=== PATIENT | male | born 1955 | race Caucasian/White ===

== ENCOUNTER 2018-01-26 15:15 | Observation (INO) | payer OTHER ==
[2018-01-26] MEDS ORDERED: NS 500 ML IV ONE (15:26)
--- NOTE | 2018-01-26 15:29 | CPEKG ---
Heart Rate: 132 RR Interval: 455 QRSD Interval: 100 QT Interval: 364 QTC Interval: 540 QRS Swink: -25 T Wave Swink: 201 EKG Severity - ABNORMAL ECG - EKG Impression: A-FLUTTER W/ VARIED AV BLOCK, A-RATE 277 EKG Impression: INCOMPLETE RBBB AND LAFB EKG Impression: ABNORMAL T, CONSIDER ISCHEMIA, DIFFUSE LEADS EKG Impression: PROLONGED QT INTERVAL Electronically Signed By: Za Montenegro 26-Jan-2018 20:52:00
[2018-01-26 15:39] LABS: PLATELET COUNT 367 10^3/uL (150-400)
[2018-01-26 15:45] LABS: CREATINE KINASE 182 IU/L (0-224)
[2018-01-26 15:48] LABS: INR 0.98 (0.83-1.16); PROTIME(PATIENT) 13.2 SEC (12.0-15.0)
--- NOTE | 2018-01-26 15:50 | EDPHY ---
H & P Time Seen by Provider: 01/26/18 15:26 HPI/ROS: HPI Weakness and pain in left foot. 62-year-old male by ambulance from the [facility]. This patient was initially seen at [facility], [place] with complaint of a left ft drop which has been present for the last 3 weeks but intermittent in nature. He reports that it has been more constant over the last 3-4 days. He denies any back pain. No headache. No neck pain. No history of trauma. He reports he had no issues involving his left lower extremity prior to 3 weeks ago. He also describes having swelling in the left lower extremity for the last 3 weeks. He describes having paresthesia over the dorsal aspect of the left foot and some associated intermittent pain. When evaluated at the [facility] [place] he was noted to be tachycardic and likely in atrial flutter this was the reason why he was sent to our emergency department. He denies any palpitations. No other complaints. ROS: Constitutional: No fever, no chills. No weakness. Eyes: No discharge. No changes in vision. ENT: No sore throat. No nasal congestion or rhinorrhea. Respiratory: No cough. No shortness of breath. Cardiac: No chest pain, no palpitations. Gastrointestinal: No abdominal pain, no vomiting, no diarrhea. Genitourinary: No hematuria. No dysuria or increased frequency with urination. Musculoskeletal: No back pain. No neck pain. As above. Skin: No rashes. Neurological: No headache. As above. Past medical history: The patient denies any significant past medical history. He is not on any prescription medications at this time. Social history: Drinks coffee. Denies alcohol. No IV drugs or street drugs. Lives in [place]. Nonsmoker. Physical Exam: General Appearance: Alert, no distress. This patient is responding to questions appropriately and in full sentences. This patient appears well- hydrated and well-nourished. Eyes: Pupils equal and round no pallor or injection. No lid edema, erythema or injection. Respiratory: There are no retractions, lungs are clear to auscultation with good air movement bilaterally. Cardiovascular: Regular tachycardia. No murmur appreciated. Gastrointestinal: Abdomen is soft and nontender, no masses, bowel sounds normal. No focal tenderness at McBurney's point. No Gan sign. Neurological: Motor sensory function is grossly intact except for a left lower extremity L5 dermatomal sensory deficit and motor deficit with no bo flexion strength and a drop foot. Cranial nerves are normal. Antalgic gait. Skin: Warm and dry, no rashes. Musculoskeletal: Neck is supple and nontender. No midline cervical, thoracic, lumbar, sacral tenderness on palpation. No bony step-off heart deformity noted on palpation of his spine. No SI joint tenderness on palpation. No significant scoliosis. Left lower extremity significant for diffuse edema an asymmetric swelling relative to the right. The left knee joint also appears to be swollen, however this is without of fusion, he states that his left knee has been this way since an injury in high school. The left knee joint is stable to valgus and varus stress testing. It is stable to anterior and posterior drawer testing. The left lower extremity is vascularly intact with normal capillary refill and sensation in all digits. He has palpable dorsalis pedis and posterior tibial pulses. Muscle compartments of the left leg are soft. Psychiatric: No agitation. No depression. Database: EKG: EKG time is 3:27 p.m.: EKG shows if again for a narrow complex atrial flutter with variable AV block and ventricular rate average of 150-130. There is an incomplete right bundle branch block and left anterior fascicular block is noted. Diffuse T-wave abnormalities noted. Corrected QT interval is 540. Interpreted by me. Imaging: Left knee x-ray series: Severe degenerative she joint disease noted. Osteophytic add cystic changes. No acute fracture, subluxation, dislocation. Interpreted by me. Please see radiologist's interpretation for further details. Chest x-ray AP portable; the cardiac mediastinal silhouette is unremarkable. No evidence of infiltrate or pneumothorax. Probable left basilar atelectasis. No other acute cardiopulmonary disease process noted. Interpreted by me. Left lower extremity ultrasound: Negative for DVT. Results were discussed with staff radiologist. Lumbar spine MRI without contrast: Significant for a moderate to severe L5-S1 posterior left lateral disc bulge. Degenerative changes noted. Results discussed with staff radiologist Dr. Jey Gregg. Please see his report for further details. Procedures: Emergency department course: IV placed. Patient placed on a cardiac cath rn. Vital signs reviewed. laboratory monitor shows a narrow complex regular tachycardia with ventricular rate of 130. Patient started on IV normal saline with 500 cc to be given over the next 30 min to 1 hr. He will be started on a diltiazem loading drip at 2.5 milligrams/minute up to 50 mg total for rate control of atrial flutter. Patient's medical records reviewed. He was seen in the emergency department January 09 of this year with complaint of palpitations. He describes these is intermittent. He had a EKG which showed a normal sinus rhythm at that time. He was discharged to home from the emergency department after an unremarkable workup. 5:30 p.m., patient received a total of 20 mg of IV diltiazem is a loading drip. His ventricular rate was controlled into the upper 80s to low 90s. He was started on a steady state drip at 10 mg an hour. Hospitalist paged. 6:10 p.m., case discussed with on-call hospitalist Dr. Evans. He accepts this patient for admission. Neurosurgery page. 6:20 p.m., spoke with on-call neuro spine surgeon Dr. Tabares. He will consult on this patient. He will likely see the patient in the emergency department prior to transfer to the floor. 6:30 p.m., patient re-evaluated. Resting comfortably at this time. Results of MRI, emergency department workup plan for admission discussed with him. Vital signs reviewed. laboratory monitor shows a narrow complex atrial flutter with ventricular rate of 79. Diltiazem drip currently at 10 milligrams/hour. Blood pressure 114/75. Patient's remaining emergency department course under my care uneventful. Patient was admitted to telemetry under the care of Dr. Evans in stable condition. Differential Diagnosis: The differential diagnosis on this patient includes but is not limited to atrial flutter with variable block and rapid ventricular response, left lower extremity DVT, L5 radiculopathy, compartment syndrome, peroneal nerve impingement. This represents a partial list of diagnoses considered. These considerations are based on history, physical exam, past history, reassessment and diagnostic testing. Smoking Status: Current every day smoker Constitutional: Initial Vital Signs Temperature (C) 36.9 C 01/26/18 15:15 Heart Rate 132 H 01/26/18 15:15 Respiratory Rate 17 01/26/18 15:15 Blood Pressure 140/97 H 01/26/18 15:15 O2 Sat (%) 95 01/26/18 15:15 O2 Delivery Mode Room Air Allergies/Adverse Reactions: No Known Allergies Allergy (Unverified 01/26/18 15:26) Home Medications: Medication Instructions Recorded Aspirin 01/26/18 Ibuprofen 01/26/18 Medical Decision Making - Diagnostics Imaging Results: Imaging Impressions Chest X-Ray 01/26/18 15:27 Impression: 1. Mild prominent interstitial markings left mid to lower lung. The patient is apparently not symptomatic for interstitial pneumonia. Consider mild scarring or atelectasis. Extremity Venous Study 01/26/18 15:27 Impression: No evidence of deep vein thrombosis in the left leg. Knee X-Ray 01/26/18 15:37 Impression: 1. Severe degenerative change in the lateral compartment. 2. Possible loose body. 3. Cystic change in the proximal fibula most likely related to subchondral cyst formation. 4. Additional findings, as above. Dr. Javier Prakash reviewed the study and agrees with the findings. Lumbar Spine MRI 01/26/18 15:37 Impression: 1. Moderate levoscoliosis mid to lower lumbar spine with associated disk space narrowing and hypertrophic osteophytes as detailed above.. 2. Mild to moderate left posterior lateral disk bulge at L5-S1 along with facet hypertrophy contributes to moderate to severe left-sided neuroforaminal stenosis that may account for the patient's symptoms. 3. Multilevel degenerative disk disease from T9-T10 through L4-L5 as detailed above with associated mild spinal stenosis as well as neuroforaminal stenoses more prominent on the left side at L1-L2 and L2-L3 and right side at L3-L4 and at L4-L5 as detailed above. Findings discussed with Za Montenegro MD at 17:21 hour, 01/26/2018. - Data Points Laboratory Results: Laboratory Results 01/26/18 15:15 01/26/18 15:15 01/26/18 01/26/18 01/26/18 15:15 15:15 15:15 WBC RBC Hgb Hct MCV MCH MCHC RDW Plt Count MPV Neut % (Auto) Lymph % (Auto) Dickenson % (Auto) Eos % (Auto) Baso % (Auto) Nucleat RBC Rel Count Absolute Neuts (auto) Absolute Lymphs (auto) Absolute Monos (auto) Absolute Eos (auto) Absolute Basos (auto) Absolute Nucleated RBC Immature Gran % Immature Gran # PT 13.2 SEC SEC (12.0-15.0) INR 0.98 (0.83-1.16) APTT 26.9 SEC SEC (23.0-38.0) D-Dimer 0.39 ug/mLFEU ug/mLFEU (0.00-0.50) Sodium 135 mEq/L mEq/L (135-145) Potassium 4.5 mEq/L mEq/L (3.5-5.2) Chloride 103 mEq/L mEq/L (97-110) Carbon Dioxide 23 mEq/l mEq/l (22-31) Anion Gap 9 mEq/L mEq/L (8-16) BUN 18 mg/dL mg/dL (7-23) Creatinine 0.8 mg/dL mg/dL (0.7-1.3) Estimated GFR > 60 Glucose 92 mg/dL mg/dL (70-100) Calcium 9.8 mg/dL mg/dL (8.5-10.4) Creatine Kinase 182 IU/L IU/L (0-224) CK-MB (CK-2) Fraction 5.51 ng/mL H ng/mL (0.00-3.19) CK-MB (CK-2) % 3.0 % % (0.0-4.0) Creatine Kinase Interp NEGATIVE (NEGATIVE) Troponin I < 0.012 ng/mL ng/mL (0.000-0.034) TSH 0.488 uIU/mL uIU/mL (0.465-4.680) 01/26/18 15:15 WBC 8.95 10^3/uL 10^3/uL (3.80-9.50) RBC 4.74 10^6/uL 10^6/uL (4.40-6.38) Hgb 15.4 g/dL g/dL (13.7-17.5) Hct 45.0 % % (40.0-51.0) MCV 94.9 fL fL (81.5-99.8) MCH 32.5 pg pg (27.9-34.1) MCHC 34.2 g/dL g/dL (32.4-36.7) RDW 12.7 % % (11.5-15.2) Plt Count 367 10^3/uL 10^3/uL (150-400) MPV 8.3 fL L fL (8.7-11.7) Neut % (Auto) 71.1 % % (39.3-74.2) Lymph % (Auto) 20.8 % % (15.0-45.0) Dickenson % (Auto) 6.8 % % (4.5-13.0) Eos % (Auto) 0.2 % L % (0.6-7.6) Baso % (Auto) 0.2 % L % (0.3-1.7) Nucleat RBC Rel Count 0.0 % % (0.0-0.2) Absolute Neuts (auto) 6.36 10^3/uL 10^3/uL (1.70-6.50) Absolute Lymphs (auto) 1.86 10^3/uL 10^3/uL (1.00-3.00) Absolute Monos (auto) 0.61 10^3/uL 10^3/uL (0.30-0.80) Absolute Eos (auto) 0.02 10^3/uL L 10^3/uL (0.03-0.40) Absolute Basos (auto) 0.02 10^3/uL 10^3/uL (0.02-0.10) Absolute Nucleated RBC 0.00 10^3/uL 10^3/uL (0-0.01) Immature Gran % 0.9 % % (0.0-1.1) Immature Gran # 0.08 10^3/uL 10^3/uL (0.00-0.10) PT INR APTT D-Dimer Sodium Potassium Chloride Carbon Dioxide Anion Gap BUN Creatinine Estimated GFR Glucose Calcium Creatine Kinase CK-MB (CK-2) Fraction CK-MB (CK-2) % Creatine Kinase Interp Troponin I TSH Medications Given: Discontinued Medications Diltiazem HCl (Cardizem 25 Mg/5 Ml Vial) 50 mg IVP EDNOW ONE Stop: 01/26/18 16:50 Last Admin: 01/26/18 17:09 Dose: 20 mg Sodium Chloride (Ns) 500 mls @ 1,000 mls/hr IV EDNOW ONE PRN Reason: Protocol Stop: 01/26/18 15:55 Last Admin: 01/26/18 15:59 Dose: 500 mls Diltiazem/Dextrose (Diltiazem 125mg/125ml (Premix)) 125 mls @ 0 mls/hr IV EDNOW ONE; Titrate PRN Reason: Protocol Stop: 01/26/18 17:01 Last Admin: 01/26/18 17:35 Dose: 125 mls Departure - Departure Disposition: [facility] Inpatient Acute Clinical Impression: Atrial flutter with rapid ventricular response, L5 neuropathy Referrals: Patient,NotPresent [Unknown] - As per Instructions
[2018-01-26] MEDS ORDERED: DILTIAZEM 125 MG in D5W 125 ML IV ONE (16:11)
[2018-01-26] MEDS ORDERED: DILTIAZEM 50 MG/10 ML VIAL IV ONE (16:48)
[2018-01-26] MEDS ORDERED: DILTIAZEM 25 MG/5 ML VIAL IVP ONE (16:49)
[2018-01-26] MEDS ORDERED: DILTIAZEM HCL/D5W 125 ML IV ONE (17:00)
[2018-01-26] MEDS ORDERED: ONDANSETRON DISINTEGRATING 4 MG TAB PO PRN (18:39)
[2018-01-26] MEDS ORDERED: ONDANSETRON 4 MG/2 ML VIAL IVP PRN (18:39)
[2018-01-26] MEDS ORDERED: ZOLPIDEM TARTRATE 5 MG TAB PO PRN (18:39)
[2018-01-26] MEDS ORDERED: ACETAMINOPHEN 325 MG TAB PO PRN (18:39)
[2018-01-26] MEDS ORDERED: DILTIAZEM 125 MG in D5W 125 ML IV SCH (18:45)
--- NOTE | 2018-01-26 19:21 | PDGENHP ---
History and Physical History and Physical: CC: Sent from [place] ER because of rapid atrial flutter HISTORY: This patient with no history of heart disease had gone to the [place] ER today because of a left foot drop but is sent here for evaluation and treatment of newly diagnosed atrial flutter. The patient was found to have a heart rate of 135 regular but with a flutter on EKG at the ER. He had stable vital signs otherwise in no signs of heart failure. He has no sense of palpitations nor has he ever had any palpitations or any symptoms of heart failure, PE or other cardiac issues. Therefore there is no known onset of his atrial flutter. Again he denies dyspnea, leg swelling, orthopnea, exertional fatigue. She has no history of anything that sounds like angina. He has no use of alcohol, no use of stimulants, no thyroid disease or thyroid symptoms, and no family history of arrhythmia. He has never had an echocardiogram The reason the patient showed up at the ER in [place] today was because of a left foot drop associated with some dorsal left foot pain that has been present for approximately 3 weeks and gradually worsening. The pain is described as a burning sensation along with some numbness. He cannot dorsiflex his ankle or toes at all and has stumbled a bit trying to walk recently but has not fallen. There is no recent injury to the leg but he has a history of an knee injury as a high school student playing football and lately has noticed some change in shape and diameter of his knee per with a particular bony bulge medially. Occasionally the knee makes some noises as he walks. Because of this he started wearing a knee brace to try and stabilize it and this was a little over 3 weeks ago that he started wearing the knee brace. 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 He is a cigarette smoker currently No alcohol or street drugs MEDICATIONS: No prescription medicines, some nonsteroidal anti-inflammatories Has been wearing Lidoderm patches on his left foot and leg which are helping with his pain PHYSICAL EXAMINATION: Vital Signs: Started off here with pulse 135 and regular pulse is now in the upper 70s and regular, blood pressure respiration temperature is all normal Psychiatric Secretary: Initially 2-1 atrial flutter now 41 atrial flutter on a diltiazem drip Examination: General: alert, oriented, good mentation, relaxed Skin: warm, dry, good color, no rash HEENT: normal Neck: no mass or jvd Resps: relaxed Lungs: clear breath sounds Heart: regular, no murmur Abdomen: soft, nondistended, nontender, +BS, no mass Upper Extremities: normal Lower Extremities: There is a significant bony deformity to his left knee. He has good strength in the hip and knee flexors and extensors and good strength in the plantar flexion of his ankle in all of his toes but no dorsiflexion of his ankle or toes and he is insensate to touch on the dorsum of the foot and toes with diminished but better sensation on the lateral ankle No Bleeding or bruising Neurologic: normal speech/language, normal personal property assessor, no focal weakness IV site: looks normal LABORATORY DATA: Unremarkable CBC Unremarkable coagulation studies Unremarkable metabolic panel, troponin, and TSH is normal RADIOLOGY STUDIES: I reviewed images from a chest x-ray done in the ER which show some mild elevation of left hemidiaphragm but otherwise were unremarkable on my review I reviewed images from his left knee x-rays done in the ER which on my reading show severe degenerative changes with lateral compartment joint space narrowing and subchondral cystic changes which were quite remarkable in the proximal fibular head I reviewed his MRI of the lumbar spine with Dr. Montenegro which shows significant degenerative bony changes as well as L5-S1 disc protrusion leaving some foraminal stenosis. I have reviewed this verbally with Dr. 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 Is unknown how long he has been in atrial flutter or how likely he is to spontaneously convert. Clearly he needs anticoagulation. We could consider possibly a cardioversion and will review his case for possible SUE cardioversion tomorrow with Cardiology. That being said if he can be adequately rate controlled it may make good sense to treat him with anticoagulation and follow along and just do cardioversion if he either has trouble or does not spontaneously convert over time. At this point there is no obvious trigger for his atrial flutter at the moment. In terms of his left foot drop, I believe this is most likely a peroneal nerve palsy and Dr. Mayank Hull agrees. I believe this may have been caused by his knee brace and have suggested he stop wearing that. At this point particularly as he will be on anticoagulation it will be important to protect him from falls and so I will recommend an AFO brace and a cane along with therapies. I reviewed all this with him in detail. An outpatient nerve conduction study would be diagnostic to see if this is indeed peroneal nerve palsy PLANS: -placed on observation status on pvc monitor -continue rate controlled for the moment with diltiazem drip -will start Eliquis at this time -he will need Eliquis education -check echocardiogram to look for any structural heart abnormalities or functional heart abnormalities -check with Cardiology to see if they feel a SUE and cardioversion would be indicated if he does not spontaneously convert -physical occupational therapy assessment -AFO brace -use of a cane is recommended -tobacco cessation is strongly recommended as well I have reviewed the patient's case in detail with Dr. Za Montenegro and Adrian Tabares
[2018-01-26] MEDS ORDERED: APIXABAN 5 MG TAB PO ONE (19:45)
--- NOTE | 2018-01-26 20:35 | GCON ---
[f rep st] CONSULTATION ER CONSULTATION DATE OF CONSULTATION: 01/26/2018 REASON FOR CONSULTATION: Left painless footdrop with lumbar spondylosis and stenosis. HISTORY OF PRESENT ILLNESS: The patient is a 62-year-old gentleman who is otherwise fairly healthy w ho has had onset of weakness and radiculopathy, neuropathy in the left leg below the knee. The patie nt states this has been going on for approximately 3 weeks. He has had some swelling and buckling of his left knee for which he has been previously wearing a knee brace. No history of prior footdrop o r weakness in the past. He denies any back pain and no pain or symptoms above the left knee and no s ymptoms in the right lower extremity. The patient had such severe pain in the left foot that he came to the Urgent Care in [place]. When evaluated at [facility], he was noted to be tachyc ardic and likely in atrial flutter, for which he was sent to [facility]. At this point, the patient denies any palpitations or chest pain. No back pain. No lower extremity pain. He has been placing Lidoderm patches on the left foot where he had burning sensation, and that has all since improved. He continues to have left foot weakness which has been chronic in nature fo r approximately 3 weeks with no inciting trauma or event. REVIEW OF SYSTEMS: Complete 10-point review of systems from the patient intake form were reviewed by myself, significant only as noted above in the HPI. PAST MEDICAL HISTORY: None. PAST MEDICAL HISTORY: None. SOCIAL HISTORY: The patient drinks coffee. Denies any alcohol or other illicit drug use. He lives in [place] and works in [employer]. Denies tobacco use. ALLERGIES: No known drug allergies. FAMILY HISTORY: Negative for any neurological tumors. PHYSICAL EXAMINATION: VITAL SIGNS: Blood pressure is 114/69, heart rate is 79, respiratory rate is 18, he is saturating 95% on room air. Temperature is 36.9. GENERAL: The patient is lying on the gu rney, he is in no acute distress. He is quite pleasant and cooperative with examination. Questions are answered appropriately. HEENT: Head is atraumatic, normocephalic. Pupils are equal, round, and reactive to light bilaterally. NEUROLOGIC: Cranial nerves 2-12 are intact. His pupils are equal, round, and reactive to light bilaterally. Extraocular movements intact. Face is symmetric. Tongue protrudes in the midline. Uvula and palate elevate symmetrically. He has intact sensation to light touch to his face bilaterally. Hearing is intact to light finger scratch bilaterally, and shoulder s hrug is symmetric. MOTOR: He has 5/5 strength with bilateral airport traffic controller strength, biceps, triceps, deltoi ds, bilateral hip flexion, bilateral knee flexion and extension, right-sided plantar dorsiflexion, ex tensor hallucis longus. He has 5/5 left foot inversion with no left foot eversion nor dorsiflexion a nd no EHL with 5/5 left plantar flexion. SENSORY: He has intact sensation to all touch through all major dermatomes of the bilateral upper and lower extremities throughout. He states he previously owens d had diminished sensation to light touch over the left dorsum of his foot, and it questionably is di minished at this point after having been treated with the Lidoderm patch. OTHER: Patient has slight swelling of the left knee without effusion. Patient states he was wearing a knee brace on this prio r to my examination. He has no Babinski's and no Lockhart's. MEDICAL DECISION-MAKING: Patient underwent an MRI of the lumbar spine without contrast, which was re viewed by myself on the [facility] PAC system. There was evidence of moderate levosc oliosis in the mid to lower lumbar spine with associated disk space narrowing and hypertrophic osteop hytes. There is mild to moderate left posterolateral disk bulge at L5-S1 with facet hypertrophy and evidence of moderate left-sided neural foraminal stenosis. He has multilevel degenerative disk disea se in T9-T10 through L4-L5 with mild spinal stenosis and neural foraminal stenosis on the left L1-L2, L2-L3, right-sided L3-L4, L4-L5. ASSESSMENT AND PLAN: The patient is a 62-year-old gentleman who presents with atrial flutter, but pr esented initially to the emergency department/urgent care for left painless footdrop with a little bi t of neuropathic pain and diminished sensation. He has no evidence of dorsiflexion of the foot or ex tensor hallucis longus, and diminished sensation with no evidence of any eversion of the left foot. His MRI does demonstrate some neural foraminal stenosis on the left side at L5-S1, but this is not se alina in nature, and it is questionable as to whether this is contributing to his symptoms, given his lack of back pain or any symptoms above the left knee, or on the right lower extremity. This may be evidence of peroneal nerve injury. At this point, he is going to be admitted to the [facility] for his cardiac evaluation. Recommend starting the patient on some Neurontin for his neuropathic pain and consideration for a left ankle-foot orthosis for his footdrop and possibly physical therapy /occupational therapy for left foot strengthening and gait training. Would consider an outpatient EM G to further evaluate the symptomatology. I do not think an injection would be worthwhile, given the fact that he has improved symptoms at this point from a pain standpoint. Further recommendations wi ll be completed as an outpatient. Please note, I discussed this with the patient, who is in agreement, as well as Dr. Evans who is the admitting physician, and the emergency room physician, Dr. Hernandez. Thank you for this consultation. Please note, this patient was seen in the emergency department at approximately 6:45 p.m. on January 26, 2018. /[id number]/MODL
[2018-01-26] MEDS ORDERED: APIXABAN 5 MG TAB PO SCH (21:00)
[2018-01-26] MEDS ORDERED: DILTIAZEM HCL/D5W 125 ML IV SCH (21:00)
[2018-01-27 04:14] LABS: PLATELET COUNT 373 10^3/uL (150-400)
[2018-01-27] MEDS: NICOTINE 14 MG/24 HR PATCH TD SCH ×2 (04:57→07:56)
--- NOTE | 2018-01-27 07:51 | SOAPPROG ---
KAILEE Progress Note Assessment/Plan: Assessment: 62 yo M with painless left dorsiflexor weakness with moderate DJD on lumbar spine Plan: neuro: stable discussed with patient that weakness may be coming from moderate DJD L4/5 with far lateral stenosis left L5/S1 but he has no significant back pain or radicular leg pain. started medrol dose pack started neurontin PT/OT patient would benefit from AFO brace will have patient get outpatient EMG to evaluate for acute radiculopathy follow up with Dr Tabares in 3-6 weeks please call with neuro changes discussed with Dr Tabares 01/27/18 07:47 Subjective: no back pain, no leg pain, continued left DF weakness. Objective: Vital Signs Temp Pulse Resp BP Pulse Ox 36.7 C 66 18 93/65 L 95 01/27/18 07:39 01/27/18 07:39 01/27/18 07:39 01/27/18 07:39 01/27/18 07:39 Laboratory Results 01/27/18 03:42 01/27/18 03:42 01/26/18 01/27/18 01/28/18 05:59 05:59 05:59 Intake Total 1240 Output Total 1100 450 Balance 140 -450 PT 13.2 SEC (12.0-15.0) 01/26/18 15:15 INR 0.98 (0.83-1.16) 01/26/18 15:15 AAOx4, +FC PERRL, EOMI, no facial droop 5/5 except left DF/EHL 0/5 + light touch ICD10 Worksheet Patient Problems: Problems Problem Status Onset Atrial flutter with rapid ventricular response Acute
[2018-01-27] MEDS ORDERED: APIXABAN 5 MG TAB PO SCH (09:00)
--- NOTE | 2018-01-27 09:05 | CPEKG ---
Heart Rate: 67 RR Interval: 896 QRSD Interval: 140 QT Interval: 436 QTC Interval: 461 QRS Polk: -63 T Wave [place]k: 153 EKG Severity - ABNORMAL ECG - EKG Impression: A-FLUTTER W/ PREDOM 4:1 AV BLOCK, A-RATE 263 EKG Impression: NONSPECIFIC IVCD WITH LAD Electronically Signed By: Rayray Hernandez 27-Jan-2018 11:07:45
[2018-01-27] MEDS ORDERED: ATROPINE SULFATE 1 MG/10 ML SYR IVP ONE (09:29)
[2018-01-27] MEDS ORDERED: NS 1,000 ML IV ONE (09:29)
--- NOTE | 2018-01-27 09:32 | PDPROPOC ---
Sedation Plan of Care Sedation Plan of Care: vital signs stable, mental status noted, patient educated of risks, benefits, alternatives, patient can tolerate sedation ASA Classification: ASA 3 Planned drugs: fentanyl, midazolam, other (etomidate protocol) Mallampati Score: Class 3 Mallampati Reference Image: Patient passed 3-3-2 rule?: Yes
--- NOTE | 2018-01-27 09:33 | PDHPUP ---
History & Physical Update H&P update statement: This history and physical update is based on an assessment of the patient which was completed after admission or registration (within 24 hours), but prior to the surgery/procedure. H&P update: H&P reviewed & patient examined (patient needs SUE guided cardioversion), no change in patient's condition since H&P completed
--- NOTE | 2018-01-27 09:43 | PDCARCONS ---
Cardiology Consult Reason for Consult: I was asked to see the patient because of newly diagnosed atrial flutter. Chief Complaint: The patient was seen at the [place] ED with foot drop that was ongoing for the past 3 weeks, while at the ED he was newly diagnosed with atrial flutter. The patient was sent here for further evaluation. He denies cardiac symptoms including chest pain, syncope, near syncope, shortness of breath, and lightheadedness. History of Present Illness: HPI: Kevan is an active 62-year-old male. He was sent here from the [place] ED with newly diagnosed atrial flutter. Kevan presented to the ED with ongoing foot drop for the past 3 weeks with associated burning. He has been applying Lidocaine patches to the left foot and taking NSAIDS which seems to improve his pain. He works at a [employer] and is constantly moving throughout the day. Kevan denies cardiac symptoms including chest pain, syncope, near syncope, shortness of breath, and lightheadedness at rest and with exertion. Past Medical History: Denies. Family history: Father of stroke at a young age. Social History: Works at a [employer]. History Information - Allergies/Home Medication List Allergies/Adverse Reactions: No Known Allergies Allergy (Unverified 01/26/18 15:26) Home Medications: Aspirin EC [Aspirin EC 81 mg (*)] 81 mg PO DAILY 01/26/18 [Last Taken 01/26/18] Ibuprofen [Motrin (*)] 400 - 600 mg PO Q6H PRN 01/26/18 [Last Taken 01/26/18] I have personally reviewed and updated: family history, medical history, social history, surgical history Past Medical History: - Past Medical History no pertinent PMH - Surgical History Reports: no pertinent surgical hx - Family History Positive for: stroke - Social History Smoking Status: Light smoker Age in Years: < 65 Sex: Male Congestive Heart Failure History: No Hypertension History: No Stroke/TIA/Thromboembolism History: No Vascular Disease History: No Physical Exam Physical Exam: Temp Pulse Resp BP Pulse Ox 36.7 C 66 18 93/65 L 95 01/27/18 07:39 01/27/18 07:39 01/27/18 07:39 01/27/18 07:39 01/27/18 07:39 Constitutional: no apparent distress Eyes: PERRL, anicteric sclera Ears, Nose, Mouth, Throat: moist mucous membranes Cardiovascular: regular rate and rhythym, no murmur, rub, or gallop, No JVD Respiratory: no respiratory distress, no rales or rhonchi, clear to auscultation Skin: warm, normal color, no rashes or abrasions Psychiatric: interacting appropriately, not anxious Lab and Imaging 01/27/18 03:42 01/27/18 03:42 WBC 6.15 10^3/uL (3.80-9.50) 01/27/18 03:42 RBC 4.42 10^6/uL (4.40-6.38) 01/27/18 03:42 Hgb 14.5 g/dL (13.7-17.5) 01/27/18 03:42 Hct 42.2 % (40.0-51.0) 01/27/18 03:42 MCV 95.5 fL (81.5-99.8) 01/27/18 03:42 MCH 32.8 pg (27.9-34.1) 01/27/18 03:42 MCHC 34.4 g/dL (32.4-36.7) 01/27/18 03:42 RDW 12.9 % (11.5-15.2) 01/27/18 03:42 Plt Count 373 10^3/uL (150-400) 01/27/18 03:42 MPV 8.2 fL (8.7-11.7) L 01/27/18 03:42 Neut % (Auto) 46.0 % (39.3-74.2) 01/27/18 03:42 Lymph % (Auto) 37.6 % (15.0-45.0) 01/27/18 03:42 Brazos % (Auto) 11.5 % (4.5-13.0) 01/27/18 03:42 Eos % (Auto) 3.1 % (0.6-7.6) 01/27/18 03:42 Baso % (Auto) 0.7 % (0.3-1.7) 01/27/18 03:42 Nucleat RBC Rel Count 0.0 % (0.0-0.2) 01/27/18 03:42 Absolute Neuts (auto) 2.83 10^3/uL (1.70-6.50) 01/27/18 03:42 Absolute Lymphs (auto) 2.31 10^3/uL (1.00-3.00) 01/27/18 03:42 Absolute Monos (auto) 0.71 10^3/uL (0.30-0.80) 01/27/18 03:42 Absolute Eos (auto) 0.19 10^3/uL (0.03-0.40) 01/27/18 03:42 Absolute Basos (auto) 0.04 10^3/uL (0.02-0.10) 01/27/18 03:42 Absolute Nucleated RBC 0.00 10^3/uL (0-0.01) 01/27/18 03:42 Immature Gran % 1.1 % (0.0-1.1) 01/27/18 03:42 Immature Gran # 0.07 10^3/uL (0.00-0.10) 01/27/18 03:42 PT 13.2 SEC (12.0-15.0) 01/26/18 15:15 INR 0.98 (0.83-1.16) 01/26/18 15:15 APTT 26.9 SEC (23.0-38.0) 01/26/18 15:15 D-Dimer 0.39 ug/mLFEU (0.00-0.50) 01/26/18 15:15 Sodium 141 mEq/L (135-145) 01/27/18 03:42 Potassium 4.6 mEq/L (3.5-5.2) 01/27/18 03:42 Chloride 109 mEq/L (97-110) 01/27/18 03:42 Carbon Dioxide 25 mEq/l (22-31) 01/27/18 03:42 Anion Gap 7 mEq/L (8-16) L 01/27/18 03:42 BUN 17 mg/dL (7-23) 01/27/18 03:42 Creatinine 0.8 mg/dL (0.7-1.3) 01/27/18 03:42 Estimated GFR > 60 01/27/18 03:42 Glucose 92 mg/dL (70-100) 01/27/18 03:42 Calcium 9.3 mg/dL (8.5-10.4) 01/27/18 03:42 Magnesium 1.8 mg/dL (1.6-2.3) 01/27/18 03:42 Creatine Kinase 182 IU/L (0-224) 01/26/18 15:15 CK-MB (CK-2) Fraction 5.51 ng/mL (0.00-3.19) H 01/26/18 15:15 CK-MB (CK-2) % 3.0 % (0.0-4.0) 01/26/18 15:15 Creatine Kinase Interp NEGATIVE (NEGATIVE) 01/26/18 15:15 Troponin I < 0.012 ng/mL (0.000-0.034) 01/26/18 15:15 TSH 0.488 uIU/mL (0.465-4.680) 01/26/18 15:15 Interpretation: The patient's EKG shows atrial flutter. A/P Assessment: IMP/Plan: I recommend the patient have SUE/CV due to newly diagnosed atrial flutter to help reduce the risk of thromboembolic stroke. If he has recurrence of atrial flutter post cardioversion he may benefit from an atrial flutter ablation as he appears to have counterclockwise flutter, which is often responsive to EP study and ablation. He has a CHADS VASC score currently of 0 so I think he may benefit from anticoagulation for only 30 days post conversion, after which daily ASA may be an acceptable treatment to help reduce the risk of thromboembolic events. He has been counseled on smoking cessation.
[2018-01-27] MEDS ORDERED: ETOMIDATE 40 MG/20 ML INJ ONE (12:16)
[2018-01-27] MEDS ORDERED: ATROPINE SULFATE 1 MG/10 ML SYR ONE (12:16)
[2018-01-27] MEDS ORDERED: fentaNYL 100 MCG/2 ML INJ ONE ×2 (12:17→13:20)
[2018-01-27] MEDS ORDERED: MIDAZOLAM 2 MG/2 ML VIAL ONE ×2 (12:17→13:19)
[2018-01-27 12:26] VITALS: BP 101/66; PULSE 74; RESP 17; TEMP 98.3
--- NOTE | 2018-01-27 13:52 | PDTEE1 ---
SUE Cardioversion Procedure Procedure: electrical cardioversion, transesophageal echo Indications: other (atrial flutter) Procedural Details: Pads were placed in anterior-posterior position. SUE probe was advanced and standard images obtained. There is no evidence of left atrial or left atrial appendage thrombus. Synchronized cardioversion attempt #1: 100J Results: normal sinus rhythm Conclusions: successful SUE cardioversion Conclusion Comment: There was no clot visualized on SUE. The patient is in normal sinus rhythm after CV. Patient should be on Eliquis 5mg BID for the next 30 days following CV. Patient Problems: Problems Problem Status Onset Atrial flutter with rapid ventricular response Acute
--- NOTE | 2018-01-27 13:53 | CPEKG ---
Heart Rate: 62 RR Interval: 968 P-R Interval: 180 QRSD Interval: 90 QT Interval: 424 QTC Interval: 431 P [place]: 13 QRS [place]: 6 T Wave [place]: 47 EKG Severity - BORDERLINE ECG - EKG Impression: SINUS RHYTHM EKG Impression: PROBABLE LEFT ATRIAL ABNORMALITY Electronically Signed By: Rayray Hernandez 28-Jan-2018 12:38:56
--- NOTE | 2018-01-27 14:41 | PDDCSUM ---
Discharge Summary Discharge Summary: 62 yo male sent from [place] ED with new onset a-flutter and left foot drop. cardioverted today, see details below. Now ready for d/c consults: NS, Cards ddx: # NEW DIAGNOSIS OF RAPID ATRIAL FLUTTER of uncertain duration with no previous history of heart disease or other causative factors -s/p cardioversion, now in SR -He will have Apixaban 5mg bid x one month. 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 unclear how much this is contributing to his sxs as he doesnt have much back pain and no radiculopathy. -Etiology is likely a peroneal nerve palsy due to malfitting left knee brace. -EMG as outpatient -f/u with Dr. Tabares in 306 weeks -medrol dose pack -gabapentin -trial of neurontin -afo BRACE -PT/OT # ONGOING TOBACCO ABUSE WITH CIGARETTES 1/2 PACK DAILY F/U: WITH PCP IN ONE WEEK, WITH CARDS 2-4 WEEKS, WITH NEUROSURGERY IN 3-6 WEEKS. Exam: (prior to cardioversion) NAD irr/irr CTA B S/NT/ND NO EDEMA SKIN WARM AAOX3 MEDS: SEE MED REC TOTAL TIME SPENT ON DISCHARGE IS 40 MINUTES
--- NOTE | 2018-01-27 14:42 | PDIAF ---
- Diagnosis Diagnosis: AFLUTTER, LEFT FOOT DROP Code Status: Full Code - Medication Management Discharge Medications: Medications to Continue on Transfer Apixaban [Eliquis] 5 mg PO BID #60 tab 01/27/18 [Last Taken Unknown] Gabapentin [Neurontin 300 MG (*)] 300 mg PO HS #30 cap 01/27/18 [Last Taken Unknown] Metoprolol Tartrate [Lopressor 25 mg (*)] 12.5 mg PO BID #30 tab 01/27/18 [Last Taken Unknown] methylPREDNISolone [Medrol Dose Raghu] 1 each PO AD #1 ea 01/27/18 [Last Taken Unknown] Discharge Medications: Refer to the Discharge Home Medication list for PRN reason. - Orders Services needed: Home Care, Physical Therapy Home Care Face to Face: I certify that this patient was under my care and that I had the required [id number] encounter meeting the encounter requirements on the discharge day. My findings support the fact that the patient is homebound as defined in Home Care Face to Face Continued: CMS Chapter 7 Medicare Benefits Manual 30.1.1 , The condition of the patient is such that there exists a normal inability to leave home and consequently, leaving home would require a considerable and taxing effort. Diet Recommendation: no restrictions on diet Diet Texture: Regular Texture Diet - Follow Up Care Current Providers and Referrals: Patient,NotPresent [Unknown] - As per Instructions
[2018-01-27 14:43] VITALS: O2SAT 95
--- NOTE | 2018-01-27 14:58 | ECHO ---
[email or web address] [address] [address] Main: [phone] Fax: Transthoracic Echocardiogram Name: EV MARS MR#: [id number] Study Date: 01/27/2018 Study Time: 08:28 AM Date of : 1955 Age: 62 year(s) Height: 167.6 cm (66 in.) Weight: 68.04 kg (150 lb.) BSA: 1.77 m2 Gender: Male Examination: Echo Indication: New atrial flutter Image Quality: Contrast: Requested by: Niko Evans BP: 93 mmHg/65 mmHg Heart Rate: Rhythm: Atrial flutter Indication: New atrial flutter Procedure Staff Wheel Aligner: Jessica Chawla RDCS Reading Physician: Rayray Newell MD Requesting Provider: Conclusions: Normal size left ventricle. No LV hypertrophy. Normal global systolic LV function. EF is 61 %. Normal size right ventricle. The right atrium is moderately to severely dilated. The mitral valve is normal in appearance and function. Mild calcification of the NCC of the aortic valve.. Mild tricuspid regurgitation is present. Borderline aortic root dilatation.. The aorta is normal. No pericardial effusion. Patient was in atrial flutter over course of this study. Measurements: Chambers Valvular Assessment AV/MV Valvular Assessment TV/PV Normal Normal Normal Name Value Range Name Value Range Name Value Range IVSd (2D): 0.9 cm (0.6 cm-1.1 AV meanP mmHg ( - ) TR Vmax: 1.91 mm/s ( - ) cm) MV E Vmax: 0.80 m/s ( - ) TR PGmax: 15 mmHg ( - ) LVDd (2D): 4.7 cm (4.2 cm-5.9 MV A Vmax: 0.83 m/s ( - ) syst. PAP: 20 mmHg ( - ) cm) MV E/A: 0.96 ( - ) LVDs (2D): 3.2 cm (2.1 cm-4 cm) LVPWd (2D): 1.0 cm (0.6 cm-1 cm) LVEF (MOD4): 61 % (>=55 %) Continued Measurements: Chambers Valvular Assessment AV/MV Valvular Assessment TV/PV Patient: EV MARS Study Date: 01/27/2018 Page 1 of 2 08:28 AM Name Value Name Value Name Value LADs Lon.7 cm MV E/E' Septal: 9.10 CVP (est.): 5 mmHg LA Area: 16.4 cm2 MV E/E' Lateral: 8.20 Additional Vessels Name Value Ao Ascendin.2 cm Findings: Left Ventricle: Normal size left ventricle. No LV hypertrophy. Normal global systolic LV function. EF is 61 %. No regional wall motion abnormality. Right Ventricle: Normal size right ventricle. Left Atrium: The left atrium is normal in size. 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 Right Atrium: The right atrium is moderately to severely dilated. Mitral Valve: The mitral valve is normal in appearance and function. Aortic Valve: Mild calcification of the NCC of the aortic valve.. Tricuspid Valve: The tricuspid valve is normal in appearance and function. Mild tricuspid regurgitation is present. Pulmonic Valve: Pulmonary valve not well visualized. Aorta: Borderline aortic root dilatation.. The aorta is normal. Pericardium: No pericardial effusion. (No Signature Object) Patient: EV MARS Study Date: 01/27/2018 Page 2 of 2 08:28 AM [id number]
[2018-01-27] MEDS ORDERED: GABAPENTIN 300 MG CAP PO SCH (21:00)
== END 2018-01-27 17:53 | disposition home or self-care (01) ==
LOC: F2W 20:40
PROVIDERS: ADMIT Internal Medicine; ATTEND Family Medicine
PROC: 3E033RZ Introduction of Antiarrhythmic into Peripheral Vein, Percutaneous Approach (ICD-10-PCS; principal; 2018-01-26)
PROC: B245ZZ4 Ultrasonography of Left Heart, Transesophageal (ICD-10-PCS; principal; 2018-01-26)
PROC: 5A2204Z Restoration of Cardiac Rhythm, Single (ICD-10-PCS; principal; 2018-01-26)
DX: I48.92 Unspecified atrial flutter (principal); G57.32 Lesion of lateral popliteal nerve, left lower limb; M21.372 Foot drop, left foot; M48.04 Spinal stenosis, thoracic region; M48.061 Spinal stenosis, lumbar region without neurogenic claudication; F17.210 Nicotine dependence, cigarettes, uncomplicated; Z82.49 Family history of ischemic heart disease and other diseases of the circulatory system
CPT/HCPCS: 71045; 72148; 73564; 92960; 93005; 93306; 93971; 96361; 96365; 96375; 97161; 99285; G0378; J0461; J2250; J3010